=== PATIENT | female | born 1940 | race Caucasian/White ===

== ENCOUNTER 2017-04-20 09:38 | Emergency (ER) | payer OTHER ==
[~2017-04-20] VITALS: Ht 165.1 cm; Wt 62.6 kg
== END 2017-04-20 14:00 | disposition home or self-care (01) ==
LOC: ER 09:38
DX: S40.012A Contusion of left shoulder, initial encounter (principal); S30.0XXA Contusion of lower back and pelvis, initial encounter; W18.39XA Other fall on same level, initial encounter; Y93.89 Activity, other specified; Y92.488 Other paved roadways as the place of occurrence of the external cause; Y99.8 Other external cause status

== ENCOUNTER → 2019-03-16 | Emergency (ER) | payer OTHER ==
[~2019-03-16] VITALS: Ht 162.6 cm; Wt 57.2 kg
== END | disposition left against medical advice (07) ==
LOC: ER 18:51
DX: Z53.20 Procedure and treatment not carried out because of patient's decision for unspecified reasons (principal)

== ENCOUNTER 2019-05-01 15:59 | Outpatient (CLI) | payer OTHER | END 2019-05-01 16:21 | disposition home or self-care (01) | LOC: LAB 15:59 | DX: J11.1 Influenza due to unidentified influenza virus with other respiratory manifestations (principal); D64.0 Hereditary sideroblastic anemia; J44.9 Chronic obstructive pulmonary disease, unspecified ==

== ENCOUNTER 2019-05-11 23:52 | Emergency (ER) | payer OTHER ==
[~2019-05-11] VITALS: Ht 157.5 cm; Wt 56.2 kg
[2019-05-12] MEDS ORDERED: MUPIROCIN22 GM TOP (02:01)
[2019-05-12] MEDS ORDERED: CEFUROXIME500 MG PO (02:01)
== END 2019-05-12 02:08 | disposition home or self-care (01) ==
LOC: ER 23:52
DX: S60.351A Superficial foreign body of right thumb, initial encounter (principal); W57.XXXA Bitten or stung by nonvenomous insect and other nonvenomous arthropods, initial encounter; Y93.89 Activity, other specified; Y92.89 Other specified places as the place of occurrence of the external cause; Y99.8 Other external cause status